=== PATIENT | female | born 1960 | race Caucasian/White ===

== ENCOUNTER 2024-08-08 11:58 | Emergency (ER) | payer OTHER ==
[~2024-08-08] VITALS: Ht 170.2 cm; Wt 49.5 kg
[2024-08-08 12:03] VITALS: TEMP 97.4
[2024-08-08 12:30] VITALS: BP 144/88; O2SAT 98
== END 2024-08-08 17:18 | disposition home or self-care (01) ==
LOC: M ED 11:58
DX: U07.1 COVID-19 (principal); R20.2 Paresthesia of skin; R00.1 Bradycardia, unspecified; F17.210 Nicotine dependence, cigarettes, uncomplicated